=== PATIENT | female | born 1980 | race African-American/Black ===

== ENCOUNTER 2018-05-18 18:17 | Emergency (ER) | payer SELFPAY ==
[~2018-05-18] VITALS: Ht 167.6 cm; Wt 118.0 kg
[~2018-05-18 18:17] MED LIST: CYCL-36 PO; DARV PO
[2018-05-18 18:18] VITALS: BP 156/76; PULSE 91; RESP 15; TEMP 98.5; O2SAT 99
[2018-05-18] MEDS ORDERED: SODIUM CHLOR 0.9% 1000 ML INJ 1,000 ML IV ONE (20:30)
--- NOTE | 2018-05-18 20:37 | PD ---
HPI Chief Complaint: Dizziness Time Seen by Provider: 20:19 Travel History International Travel<30 days: No Contact w/Intl Traveler<30days: No Traveled to known affect area: No History of Present Illness HPI This is a 37-year-old female who presents to the emergency department with dizziness and lightheadedness that is been going on since this morning. She said she woke up this morning and felt feverish and warm, and then subsequently developed some lightheadedness and dizziness and feels like she has been having to go to the bathroom all day. She has some lower abdominal discomfort. She does not have any dysuria. She took her blood pressure earlier and it was in the 170s which she is here visiting from out of town and she did not want to drive back to her home until she make sure she was okay to drive. PFSH Past Medical History Medical History: Denies Significant Hx Diminished Hearing: No ?: Not : 1 Miscarriage: 1 Past Surgical History Surgical History: No Previous Surgery Social History Alcohol Use: No Tobacco Use: No Substance Use: No Allergies-Medications (Allergen,Severity, Reaction): Coded Allergies: No Known Allergies (Verified , 04/07/09) Reported Meds & Prescriptions Reported Meds & Active Scripts Active Darvocet-N 100 (Propoxyphene Napsylate/Acetam) Tab 1 Tab PO Q6HPRN FOR PAIN Flexeril (Cyclobenzaprine HCl) 10 Mg Tab 10 Mg PO TID Review of Systems Except as stated in HPI: all other systems reviewed are Neg Physical Exam Narrative GENERAL:Well appearing, no acute distress SKIN: Focused skin assessment warm and dry. HEAD: Atraumatic. Normocephalic. EYES: Pupils equal and round. No injection or drainage. ENT: Moist mucous membranes NECK: Trachea midline. CARDIOVASCULAR: Regular rate and rhythm. No murmur appreciated. RESPIRATORY: Clear to auscultation. Breath sounds equal bilaterally. GASTROINTESTINAL: Abdomen soft, non-tender, nondistended. MUSCULOSKELETAL: No obvious deformities. NEUROLOGICAL: Awake and alert. No obvious cranial nerve deficits. Moving all extremities. PSYCHIATRIC: Appropriate mood and affect; insight and judgment normal. Data Data Last Documented VS Vital Signs Date Time Temp Pulse Resp B/P (MAP) Pulse Ox O2 Delivery O2 Flow Rate FiO2 05/18/18 20:49 66 20 131/70 (90) 100 Room Air 05/18/18 18:18 98.5 Orders Orders Complete Blood Count With Diff (05/18/18 20:25) Comprehensive Metabolic Panel (05/18/18 20:25) Electrocardiogram (05/18/18 ) Ed Urine Pregnancytest Poc (05/18/18 20:25) Urinalysis - C+S If Indicated (05/18/18 20:25) Sodium Chlor 0.9% 1000 Ml Inj (Ns 1000 M (05/18/18 20:30) Ed Discharge Order (05/18/18 21:43) Labs Laboratory Tests Test 05/18/18 20:40 White Blood Count 11.7 TH/MM3 Red Blood Count 5.10 MIL/MM3 Hemoglobin 10.0 GM/DL Hematocrit 33.4 % Mean Corpuscular Volume 65.5 FL Mean Corpuscular Hemoglobin 19.6 PG Mean Corpuscular Hemoglobin Concent 30.0 % Red Cell Distribution Width 17.2 % Platelet Count 376 TH/MM3 Mean Platelet Volume 7.7 FL Neutrophils (%) (Auto) 65.1 % Lymphocytes (%) (Auto) 28.0 % Monocytes (%) (Auto) 5.4 % Eosinophils (%) (Auto) 1.2 % Basophils (%) (Auto) 0.3 % Neutrophils # (Auto) 7.6 TH/MM3 Lymphocytes # (Auto) 3.3 TH/MM3 Monocytes # (Auto) 0.6 TH/MM3 Eosinophils # (Auto) 0.1 TH/MM3 Basophils # (Auto) 0.0 TH/MM3 CBC Comment DIFF FINAL Differential Comment Urine Color YELLOW Urine Turbidity HAZY Urine pH 5.0 Urine Specific [place] 1.014 Urine Protein NEG mg/dL Urine Glucose (UA) NEG mg/dL Urine Ketones NEG mg/dL Urine Occult Blood SMALL Urine Nitrite NEG Urine Bilirubin NEG Urine Urobilinogen LESS THAN 2 mg/dL Urine Leukocyte Esterase NEG Urine RBC 1 /hpf Urine WBC 1 /hpf Urine Squamous Epithelial Cells 6 /hpf Urine Bacteria OCC /hpf Urine Mucus MOD /lpf Microscopic Urinalysis Comment CULT NOT INDICATED Blood Urea Nitrogen 7 MG/DL Creatinine 0.86 MG/DL Random Glucose 100 MG/DL Total Protein 7.6 GM/DL Albumin 3.5 GM/DL Calcium Level 8.9 MG/DL Alkaline Phosphatase 94 U/L Aspartate Amino Transf (AST/SGOT) 14 U/L Alanine Aminotransferase (ALT/SGPT) 17 U/L Total Bilirubin 0.2 MG/DL Sodium Level 141 MEQ/L Potassium Level 3.6 MEQ/L Chloride Level 106 MEQ/L Carbon Dioxide Level 24.8 MEQ/L Anion Gap 10 MEQ/L Estimat Glomerular Filtration Rate 90 ML/MIN MDM Medical Decision Making Medical Screen Exam Complete: Yes Emergency Medical Condition: Yes Interpretation(s) EKG: Normal sinus rhythm, no ST changes Mild leukocytosis Microcytic anemia Electrolytes are reassuring Urinalysis is negative for infection Differential Diagnosis Arrhythmia, electrolyte abnormality, anemia, urinary tract infection, Narrative Course This is a 37-year-old female who presents to the emergency department with lightheadedness and dizziness with multiple nonspecific symptoms including urinary frequency, ear itching, lightheadedness and fevers. Labs are reassuring with microcytic anemia which may be the prescribed her before. Otherwise I do not see a life-threatening etiology of her symptoms and I think she is safe to follow-up with her primary care physician for Diagnosis Primary Impression: Anemia Qualified Codes: D50.9 - Iron deficiency anemia, unspecified Patient Instructions: General Instructions Additional Instructions: If you develop severe chest pain, shortness of breath, sweating, lightheadedness , dizziness or difficulty breathing return to the emergency department immediately. Followup with your primary care physician in 2-3 days if your symptoms are not resolved. Med/Other Pt SpecificInfo: No Change to Meds Disposition: 01 DISCHARGE HOME Condition: Stable Lucie Shen MD May 18, 2018 20:37
[2018-05-18 20:49] VITALS: BP 131/70; PULSE 66; RESP 20; O2SAT 100
[2018-05-18 20:55] LABS: AUTOMATED NEUTROPHIL # 7.6 TH/MM3 (1.8-7.7); BASOPHIL % 0.3 % (0.0-2.0); EOSINOPHIL # 0.1 TH/MM3 (0-0.4); EOSINOPHIL % 1.2 % (0.0-4.0); HEMATOCRIT 33.4 % (35.0-46.0); LYMPHOCYTE # 3.3 TH/MM3 (1.0-4.8); MEAN CELL VOLUME 65.5 FL (80.0-100.0); MEAN CORPUSCULAR HEMOGLOBIN 19.6 PG (27.0-34.0); MEAN PLATELET VOLUME 7.7 FL (7.0-11.0); MONO % 5.4 % (0.0-8.0); MONOCYTE # 0.6 TH/MM3 (0-0.9); NEUT % 65.1 % (16.0-70.0); PLATELET COUNT 376 TH/MM3 (150-450); RED CELL DISTRIBUTION WIDTH 17.2 % (11.6-17.2); WHITE BLOOD COUNT 11.7 TH/MM3 (4.0-11.0)
[2018-05-18 21:15] LABS: ALBUMIN 3.5 GM/DL (3.4-5.0); AST (GOT) 14 U/L (15-37); BICARBONATE 24.8 MEQ/L (21.0-32.0); BLOOD UREA NITROGEN 7 MG/DL (7-18); CALCIUM 8.9 MG/DL (8.5-10.1); CHLORIDE 106 MEQ/L (98-107); CREATININE 0.86 MG/DL (0.50-1.00); GLOMERULAR FILTRATION RATE 90 ML/MIN (>89); GLUCOSE,RANDOM 100 MG/DL (74-106); SODIUM (NA) 141 MEQ/L (136-145)
[2018-05-18 21:19] LABS: ALKALINE PHOSPHATASE 94 U/L (45-117); ALT (GPT) 17 U/L (10-53); TOTAL BILIRUBIN ADULT 0.2 MG/DL (0.2-1.0); TOTAL PROTEIN 7.6 GM/DL (6.4-8.2)
[2018-05-18 21:31] LABS: BACTERIA, URINE OCC /hpf; BILIRUBIN, URINE NEG (NEG); BLOOD, URINE SMALL (NEG); GLUCOSE,URINE NEG (NEG); KETONE, URINE NEG (NEG); MUCUS URINE MOD /lpf (OCC); NITRITE,URINE NEG (NEG); SQUAMOUS EPITHELIAL CELL URINE 6 /hpf (0-5); URINE COLOR YELLOW (YELLW/STRAW); URINE LEUKOCYTE ESTERASE NEG (NEG)
--- NOTE | 2018-05-19 15:13 | EKG ---
Date Performed: 05/18/2018 Time Performed: 20:34:52 PTAGE: 37 years EKG: Sinus rhythm NORMAL ECG Since PREVIOUS TRACING , no significant change noted PREVIOUS TRACIN06/18/2009 [id number] DOCTOR: René Muniz Interpretating Date/Time 05/19/2018 15:09:28
== END 2018-05-18 22:23 | disposition home or self-care (01) ==
LOC: NEPD 18:17
DX: D50.9 Iron deficiency anemia, unspecified (principal)
CPT/HCPCS: 80053; 81001; 84703; 85025; 93005; 99284; J7030